=== PATIENT | female | born 1965 | race Caucasian/White ===

== ENCOUNTER 2022-09-27 11:21 | Emergency (ER) | payer OTHER, MEDICAID ==
[~2022-09-27] VITALS: Ht 170.2 cm; Wt 56.7 kg
[2022-09-27 11:32] VITALS: BP 109/91
--- NOTE | 2022-09-27 11:47 | NUR ---
57 Y/O FEMALE BIBA FROM STREET C/O GEN ABD PAIN RADIATING TO THE UPPER BACK, AND WITNESSED SEIZURE BY FAMILY THIS MORNING. PER EMS SHE WAS ON THE WAY TO THE ED WHEN SHE CALLED 911, UNKNOWN DURATION OF SEIZURE. PER PT SHE BELIEVES SHE HAD A SEIZURE BECAUSE SHE IS WITHDRAWING FROM ATIVAN. PICC LINE IN THE RIGHT UPPER FOREARM, PER PT PLACED IN [facility] ALLERGY:: HALDOL, FENTANYL PMH: GASTROPARESIS, GT IN PLACE, ANXIETY
[2022-09-27] MEDS ORDERED: LORazepam 2 MG/ML VIAL IVP ONE (11:50)
[2022-09-27] MEDS ORDERED: NACL 0.9% 1,000 ML IV ONE (11:50)
--- NOTE | 2022-09-27 12:00 | NUR ---
DR NELSON STATED THAT ITS "OK TO USE THE PICC"
--- NOTE | 2022-09-27 12:00 | NUR ---
Selwyn lucia in [facility] - 09/27/22 at 1217 by [email or web address] BRANDI STATED "OK TO USE PICC"
[2022-09-27 12:06] LABS: BASOPHILS % (AUTO) 0.5 % (0.0-2.0); HEMATOCRIT 25.8 % (36-48); HEMOGLOBIN 8.3 g/dL (12.0-16.0); LYMPHOCYTES # (AUTO) 0.5 K/uL (2.5-16.5); LYMPHOCYTES % (AUTO) 20.3 % (20.5-51.1); MEAN CORPUSCULAR HEMOGLOBIN 23 pg (27-31); MEAN CORPUSCULAR HGB CONC 32 g/dL (33-37); MEAN CORPUSCULAR VOLUME 71.9 fL (80-94); MONOCYTES # (AUTO) 0.2 K/uL (0.8-1.0); MONOCYTES % (AUTO) 9.3 % (1.7-9.3); NEUTROPHILS # (AUTO) 1.6 K/uL (1.8-7.7); NEUTROPHILS % (AUTO) 68.9 % (42.2-75.2); PLATELET COUNT (AUTO) 263 K/uL (140-450); RED BLOOD CELL COUNT(AUTO) 3.59 MIL/uL (4.20-5.40); RED CELL DISTRIBUTION WIDTH 18.5 % (11.6-13.7); WHITE BLOOD COUNT (AUTO) 2.3 K/uL (4.8-10.8)
--- NOTE | 2022-09-27 12:17 | NUR ---
Selwyn lucia in [facility] - 09/27/22 at 1217 by [email or web address] X-Ray at bedside.
[2022-09-27 12:18] LABS: APPEARANCE,URINE CLEAR (CLEAR); BILIRUBIN,URINE NEGATIVE (NEGATIVE); BLOOD, URINE NEGATIVE (NEGATIVE); COLOR,URINE YELLOW (YELLOW); LEUKOCYTE ESTERASE ,URINE TRACE (NEGATIVE); NITRITE, URINE NEGATIVE (NEGATIVE); PH,URINE 7.5 (5.0-9.0); UGLUCOSE NEGATIVE (NEGATIVE)
--- NOTE | 2022-09-27 12:18 | NUR ---
X-Ray at bedside.
[2022-09-27 12:21] LABS: ALBUMIN 3.5 g/dL (3.4-5.0); ANION GAP 13.3 (8-16); CARBON DIOXIDE 28.5 mmol/L (21-32); CREATININE 0.7 mg/dL (0.6-1.3); POTASSIUM 3.8 mmol/L (3.5-5.1); TOTAL BILIRUBIN 0.4 mg/dL (0.0-1.0)
[2022-09-27 12:28] LABS: RBC,URINE 0-5 /HPF (0-5)
[2022-09-27] MEDS ORDERED: DICYCLOMINE HCL LIQUID 10 MG/5 ML UDC PO ONE (12:30)
[2022-09-27] MEDS ORDERED: KETOROLAC 30 MG/ML VIAL IVP ONE (12:30)
[2022-09-27 12:40] LABS: BARBITURATE, URINE NEGATIVE ng/ml (NEG <=200); BENZODIAZEPINE, URINE POSITIVE ng/mL (NEG <=200); CANNABINOID, URINE NEGATIVE ng/mL (NEG <=50); COCAINE, URINE NEGATIVE ng/mL (NEG <=300); OPIATE, URINE NEGATIVE ng/mL (NEG <=2000); PHENCYCLIDINE SCREEN,URINE NEGATIVE ng/mL (NEG <=25)
[2022-09-27] MEDS ORDERED: LORA-476 PO (12:58)
[2022-09-27 13:16] VITALS: BP 115/70
--- NOTE | 2022-10-13 23:50 | NUR ---
LATE ENTRY* NS DISCONTINUED AT 1300
== END 2022-09-27 13:16 | disposition home or self-care (01) ==
LOC: MED 11:21
DX: F13.239 Sedative, hypnotic or anxiolytic dependence with withdrawal, unspecified (principal); Z20.822 Contact with and (suspected) exposure to COVID-19; R56.9 Unspecified convulsions; K31.84 Gastroparesis; D64.9 Anemia, unspecified; D72.819 Decreased white blood cell count, unspecified; F15.23 Other stimulant dependence with withdrawal; R10.9 Unspecified abdominal pain; F41.9 Anxiety disorder, unspecified; Z98.890 Other specified postprocedural states; Z79.899 Other long term (current) drug therapy; Z88.5 Allergy status to narcotic agent; Z88.8 Allergy status to other drugs, medicaments and biological substances
CPT/HCPCS: 36415; 74018; 80053; 80305; 81001; 83690; 85025; 87086; 87426; 93005; 96361; 96374; 96375; 99285; J1885; J2060; J7030

== ENCOUNTER 2022-10-02 14:28 | Emergency (ER) | payer OTHER, MEDICAID ==
[~2022-10-02] VITALS: Ht 170.2 cm; Wt 56.7 kg
[~2022-10-02 14:28] MED LIST: LORA-476 PO
[2022-10-02 14:31] VITALS: BP 127/78
[2022-10-02] MEDS ORDERED: LORazepam 2 MG/ML VIAL IM ONE (14:45)
--- NOTE | 2022-10-02 14:45 | NUR ---
57YO FEMALE PT [facility] [place] C/O ATIVAN WITHDRAWAL XTODAY. STATES BEING OUT OF RX ATIVAN FOR 3DAYS DUE TO PCP NOT BEING AVAILABLE FOR REFILL. REPORTS SEIZURE THIS MORNING FOR UNKNOWN TIME. DENIES CHEST PAIN, N/V/D, FEVER, CHILLS OR SOB. PT AAOX4, RESTLESS W/ EXCESSIVE SPEECH "I DONT WANT TO " " I DONT LIKE THIS" "I NEED IT". ON MANAGER GAMING. SEIZURE PADS IN PLACE. HX: BIPOLAR, PTSD, GERD, HYPOTHYROID ALLERGIES: FENTANYL, HALOPERIDOL
--- NOTE | 2022-10-02 14:47 | NUR ---
MD MITCHELL AT BEDSIDE FOR EVALUATION
[2022-10-02] MEDS ORDERED: LORA-476 PO (15:28)
--- NOTE | 2022-10-02 15:40 | NUR ---
Patient discharged with v/s stable. Written and verbal after care instructions FOR BENZODIAZEPINE WITHDRAWAL given and explained. Patient alert, oriented and verbalized understanding of instructions. Ambulatory with steady gait. All questions addressed prior to discharge. ID band removed. Patient advised to follow up with PMD. Rx of ATIVAN given. Opportunity to ask questions provided and answered.
--- NOTE | 2022-10-02 15:51 | NUR ---
The patient's care was reviewed and supervised by Haleigh Garcia, RN, RN.
== END 2022-10-02 15:40 | disposition home or self-care (01) ==
LOC: MED 14:28
DX: F15.23 Other stimulant dependence with withdrawal (principal); F41.9 Anxiety disorder, unspecified; R45.1 Restlessness and agitation; R10.9 Unspecified abdominal pain; K21.9 Gastro-esophageal reflux disease without esophagitis; E03.9 Hypothyroidism, unspecified; Z79.899 Other long term (current) drug therapy; Z88.5 Allergy status to narcotic agent; Z88.8 Allergy status to other drugs, medicaments and biological substances
CPT/HCPCS: 96372; 99283; J2060